=== PATIENT | male | born 1970 | race Hispanic/Latino ===

== ENCOUNTER 2024-03-11 02:23 | Emergency (ER) | payer OTHER ==
[~2024-03-11] VITALS: Ht 177.8 cm; Wt 99.0 kg
[2024-03-11] MEDS ORDERED: TRIAMCINOLON0.13 EX (02:44)
[2024-03-11 03:03] VITALS: BP 157/96
== END 2024-03-11 03:03 | disposition home or self-care (01) | DRG 607 ==
LOC: ED 02:23
DX: L25.5 Unspecified contact dermatitis due to plants, except food (principal)